=== PATIENT | female | born 1985 | race Hispanic/Latino ===

== ENCOUNTER 2018-05-16 22:32 | Emergency (ER) | payer SELFPAY ==
[2018-05-17 00:15] LABS: Absolute Lymphocytes (CBC) 1.1 K/uL (0.7-4.9); Absolute Monocytes 0.3 K/uL (0.1-1.3); Absolute Neutrophil 6.5 K/uL (1.8-8.0); Basophils % 0.3 % (0-1.3); Eosinophils % 0.9 % (0-4.4); Hematocrit 38.3 % (36.0-45.0); Lymphocytes % 13.5 % (15.3-44.8); MPV 8.9 fL (7.6-11.3); Monocytes % 3.3 % (3.3-12.3); RBC Red Blood Cell Count 4.62 M/uL (3.86-4.86)
[2018-05-17] MEDS ORDERED: DICYCLOMINE HCL 10 MG CAP ONE (00:32)
[2018-05-17] MEDS ORDERED: CIPROFLOXACIN HCL 500 MG TAB ONE (00:32)
[2018-05-17] MEDS ORDERED: metroNIDAZOLE 500 MG TABLET ONE (00:32)
[2018-05-17] MEDS ORDERED: NA CHLORIDE 0.9% 1,000 ML ONE (00:33)
[2018-05-17 00:44] LABS: Albumin 4.2 g/dL (3.4-5.0); Bilirubin Direct 0.2 mg/dL (0-0.2); Bilirubin Total 0.4 mg/dL (0.2-1.0); Potassium 3.3 mmol/L (3.5-5.1); Protein, Total 8.5 g/dL (6.4-8.2)
--- NOTE | 2018-05-17 01:34 | ER ---
Nurse's Notes [facility] Name: Cristopher Rodriguez Age: 32 yrs Sex: Female : 1985 Arrival Date: 05/16/2018 Time: 22:32 Bed 8 Private MD: Diagnosis: Diarrhea, unspecified Presentation: 05/16 22:44 Presenting complaint: Patient states: diarrhea since 0500 this am. Reports approx 7 aa1 episodes of liquid stools. Reports she recently returned from [place] today. Denies N/V. Transition of care: patient was not received from another setting of care. Onset of symptoms was May 16, 2018 at 05:00. Risk Assessment: Do you want to hurt yourself or someone else? Patient reports no desire to harm self or others. Initial Sepsis Screen: Does the patient meet any 2 criteria? No. Patient's initial sepsis screen is negative. Does the patient have a suspected source of infection? No. Patient's initial sepsis screen is negative. Care prior to arrival: None. 22:44 Method Of Arrival: Wheelchair aa1 22:44 Acuity: VELVET 3 aa1 Triage Assessment: 22:47 General: Appears in no apparent distress. comfortable, Behavior is calm, cooperative, aa1 appropriate for age. 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 - Social history:: Smoking status: Patient uses tobacco products, denies chronic smoking, but will smoke occasionally. - Ebola Screening: : Patient denies exposure to infectious person Patient denies travel to an Ebola-affected area in the 21 days before illness onset. Screenin:14 Abuse screen: Denies threats or abuse. Nutritional screening: No deficits noted. bb Tuberculosis screening: No symptoms or risk factors identified. Fall Risk None identified. Assessment: 23:14 General: Appears uncomfortable, Behavior is cooperative, anxious. Pain: Complains of bb pain in abdomen Pain began suddenly. Neuro: Level of Consciousness is awake, alert, obeys commands, Oriented to person, place, time, situation. Cardiovascular: Heart tones S1 S2 present Capillary refill < 3 seconds Patient's skin is warm and dry. Pulses are all present. Edema is absent. Respiratory: Respiratory effort is even, unlabored, Respiratory pattern is regular, Breath sounds are clear bilaterally. GI: Abdomen is non-distended, Bowel sounds present X 4 quads. Abd is soft X 4 quads Abdomen is tender to palpation. GI: Reports lower abdominal pain, upper abdominal pain, diarrhea. Derm: Skin is dry, Skin is pale, Skin temperature is warm. Musculoskeletal: Circulation, motion, and sensation intact. 05/17 00:36 Reassessment: Patient and/or family updated on plan of care and expected duration. Pain bb level reassessed. Patient is alert, oriented x 3, equal unlabored respirations, skin warm/dry/pink. pt denies pain at this time, IV intact, patent with fluids infusing family at bedside. 02:07 Reassessment: Patient is alert, oriented x 3, equal unlabored respirations, skin bb warm/dry/pink. pt resting quietly awaiting completion of IV fluids prior to discharge pt and spouse verbalized understanding of and agree to plan of care discharge instructions given. Vital Signs: 05/16 22:47 BP 108 / 60; Pulse 99; Resp 18; Temp 97.3; Pulse Ox 100% on R/A; Weight 81.65 kg (R); aa1 Height 5 ft. 6 in. (167.64 cm) (R); Pain 10/10; 18 00:37 BP 94 / 50; Pulse 84; Resp 20 S; Pulse Ox 98% on R/A; Pain 0/10; bb 02:08 BP 113 / 71; Pulse 87; Resp 16 S; Temp 98.2(O); Pulse Ox 98% on R/A; bb 05/16 22:47 Body Mass Index 29.05 (81.65 kg, 167.64 cm) aa1 ED Course: 05/16 22:32 Patient arrived in ED. am2 22:46 Triage completed. aa1 22:47 Arm band placed on left wrist. aa1 23:10 Inserted saline lock: 20 gauge in right antecubital area, using aseptic technique. bb Blood collected. 23:14 Monique Ewing, RN is Primary Nurse. bb 23:14 Patient has correct armband on for positive identification. Placed in gown. Bed in low bb position. Call light in reach. Side rails up X 1. Adult w/ patient. 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 Pulse ox on. NIBP on. pt has blanket from home. 23:59 Blayne Pink PA is PHCP. jr8 23:59 Yuri Avendaño MD is Attending Physician. jr8 05/17 02:10 No provider procedures requiring assistance completed. bb 02:17 IV discontinued, intact, bleeding controlled, No redness/swelling at site. Pressure bb dressing applied. Administered Medications: 00:35 Drug: NS 0.9% 1000 ml Route: IV; Rate: 1000 ml; Site: right antecubital; bb 02:17 Follow up: IV Status: Completed infusion; IV Intake: 1000ml bb 00:35 Drug: Bentyl 20 mg Route: PO; bb 02:10 Follow up: Response: No adverse reaction bb 00:36 Drug: Cipro 500 mg Route: PO; bb 02:11 Follow up: Response: No adverse reaction bb 00:36 Drug: Flagyl 500 mg Route: PO; bb 02:11 Follow up: Response: No adverse reaction bb Intake: 02:17 IV: 1000ml; Total: 1000ml. bb Outcome: 01:34 Discharge ordered by . jr8 02:09 Discharged to home ambulatory, with family. bb 02:09 Condition: stable 02:09 Discharge instructions given to patient, family, Instructed on discharge instructions, follow up and referral plans. medication usage, Demonstrated understanding of instructions, follow-up care, medications, Prescriptions given X 3. 02:17 Patient left the ED. bb Signatures: Melonie Noland RN RN aa1 Monique Ewing RN RN bb Blayne Pink PA PA jr8 Lakesha So am2
--- NOTE | 2018-05-17 01:35 | EDPHYS ---
Physician Documentation [facility] Name: Cristopher Rodriguez Age: 32 yrs Sex: Female : 1985 Arrival Date: 05/16/2018 Time: 22:32 Bed 8 Private MD: ED Physician Yuri Avendaño HPI: 05/17 00:16 This 32 yrs old Female presents to ER via Wheelchair with complaints of jr8 Abdominal Pain. 00:16 The patient presents with abdominal pain that is diffuse. Onset: The symptoms/episode jr8 began/occurred acutely, today. The symptoms do not radiate. Associated signs and symptoms: Pertinent positives: diarrhea, nausea. The symptoms are described as crampy. Modifying factors: The symptoms are alleviated by nothing, the symptoms are aggravated by nothing. Severity of pain: At its worst the pain was moderate in the emergency department the pain is unchanged. The patient has not experienced similar symptoms in the past. The patient has not recently seen a physician. Just got back from [place] today. Started to have abdominal cramping and diarrhea. Denies fevers or vomiting. No one else in family currently sick. 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 - Social history:: Smoking status: Patient uses tobacco products, denies chronic smoking, but will smoke occasionally. - Ebola Screening: : Patient denies exposure to infectious person Patient denies travel to an Ebola-affected area in the 21 days before illness onset. ROS: 05/17 00:16 Eyes: Negative for injury, pain, redness, and discharge, ENT: Negative for injury, jr8 pain, and discharge, Neck: Negative for injury, pain, and swelling, Cardiovascular: Negative for chest pain, palpitations, and edema, Respiratory: Negative for shortness of breath, cough, wheezing, and pleuritic chest pain, Back: Negative for injury and pain, MS/Extremity: Negative for injury and deformity, Skin: Negative for injury, rash, and discoloration, Neuro: Negative for headache, weakness, numbness, tingling, and seizure. Abdomen/GI: Positive for abdominal pain, nausea, diarrhea, abdominal cramps, Negative for abdominal distension, anorexia, dysphagia, hematemesis, black/tarry stool, rectal pain, rectal bleeding, bowel incontinence, flatulence. Exam: 00:16 Eyes: Pupils equal round and reactive to light, extra-ocular motions intact. Lids and jr8 lashes normal. Conjunctiva and sclera are non-icteric and not injected. Cornea within normal limits. Periorbital areas with no swelling, redness, or edema. ENT: Nares patent. No nasal discharge, no septal abnormalities noted. Tympanic membranes are normal and external auditory canals are clear. Oropharynx with no redness, swelling, or masses, exudates, or evidence of obstruction, uvula midline. Mucous membranes moist. Neck: Trachea midline, no thyromegaly or masses palpated, and no cervical lymphadenopathy. Supple, full range of motion without nuchal rigidity, or vertebral point tenderness. No Meningismus. Cardiovascular: Regular rate and rhythm with a normal S1 and S2. No gallops, murmurs, or rubs. Normal PMI, no JVD. No pulse deficits. Respiratory: Lungs have equal breath sounds bilaterally, clear to auscultation and percussion. No rales, rhonchi or wheezes noted. No increased work of breathing, no retractions or nasal flaring. Abdomen/GI: Soft, non-tender, with normal bowel sounds. No distension or tympany. No guarding or rebound. No evidence of tenderness throughout. Back: No spinal tenderness. No costovertebral tenderness. Full range of motion. Skin: Warm, dry with normal turgor. Normal color with no rashes, no lesions, and no evidence of cellulitis. MS/ Extremity: Pulses equal, no cyanosis. Neurovascular intact. Full, normal range of motion. Neuro: Awake and alert, GCS 15, oriented to person, place, time, and situation. Cranial nerves II-XII grossly intact. Motor strength 5/5 in all extremities. Sensory grossly intact. Cerebellar exam normal. Normal gait. Vital Signs: 05/16 22:47 BP 108 / 60; Pulse 99; Resp 18; Temp 97.3; Pulse Ox 100% on R/A; Weight 81.65 kg (R); aa1 Height 5 ft. 6 in. (167.64 cm) (R); Pain 10/10; 05/17 00:37 BP 94 / 50; Pulse 84; Resp 20 S; Pulse Ox 98% on R/A; Pain 0/10; bb 02:08 BP 113 / 71; Pulse 87; Resp 16 S; Temp 98.2(O); Pulse Ox 98% on R/A; bb 05/16 22:47 Body Mass Index 29.05 (81.65 kg, 167.64 cm) aa1 MDM: 05/16 23:59 Patient medically screened. jr8 05/17 01:10 Data reviewed: vital signs, nurses notes, lab test result(s). Data interpreted: Pulse jr8 oximetry: on room air is 98 %. Interpretation: normal. Counseling: I had a detailed discussion with the patient and/or guardian regarding: the historical points, exam findings, and any diagnostic results supporting the discharge/admit diagnosis, lab results, the need for outpatient follow up, a family practitioner, to return to the emergency department if symptoms worsen or persist or if there are any questions or concerns that arise at home. ED course: Reexamined patient. Patient still without abdominal pain. No n/v/d episodes here. Will d/c home to f/u with PCP . 05/16 23:29 Order name: Basic Metabolic Panel; Complete Time: 00:52 05/16 23:29 Order name: CBC with Diff; Complete Time: 00:43 05/16 23:29 Order name: Creatinine for Radiology; Complete Time: 00:43 05/16 23:29 Order name: Hepatic Function; Complete Time: 00:52 05/16 23:29 Order name: Lipase; Complete Time: 00:52 05/16 23:29 Order name: IV Saline Lock; Complete Time: 23:29 05/16 23:29 Order name: Labs collected and sent; Complete Time: 23:29 bb Administered Medications: 00:35 Drug: NS 0.9% 1000 ml Route: IV; Rate: 1000 ml; Site: right antecubital; 02:17 Follow up: IV Status: Completed infusion; IV Intake: 1000ml bb 00:35 Drug: Bentyl 20 mg Route: PO; bb 02:10 Follow up: Response: No adverse reaction bb 00:36 Drug: Cipro 500 mg Route: PO; bb 02:11 Follow up: Response: No adverse reaction bb 00:36 Drug: Flagyl 500 mg Route: PO; bb 02:11 Follow up: Response: No adverse reaction bb Disposition: 02:46 Co-signature as Attending Physician, Yuri Avendaño MD. pkl Disposition: 05/17/18 01:34 Discharged to Home. Impression: Diarrhea, unspecified. - Condition is Stable. - Discharge Instructions: Food Choices to Help Relieve Diarrhea, Adult, Diarrhea, Adult. - Prescriptions for Bentyl 20 mg Oral Tablet - take 1 tablet by ORAL route every 6 hours As needed; 20 tablet. Cipro 500 mg Oral Tablet - take 1 tablet by ORAL route every 12 hours for 10 days; 20 tablet. Flagyl 500 mg Oral Tablet - take 1 tablet by ORAL route every 6 hours for 10 days; 40 tablet. - Medication Reconciliation Form, Thank You Letter, Antibiotic Education, Prescription Opioid Use form. - Follow up: Private Physician; When: 2 - 3 days; Reason: Recheck today's complaints, Continuance of care, Re-evaluation by your physician. - Problem is new. - Symptoms have improved. Signatures: Dispatcher [employer] EDMS Melonie Noland RN RN aa1 Yuri Avendaño MD MD pkl Monique Ewing RN RN bb Blayne Pink PA PA jr8 Corrections: (The following items were deleted from the chart) 02:16 00:12 Urine Test ordered. jr8 02:16 00:12 Urine Dipstick-Ancillary ordered. jr8 bb 02:17 01:34 05/17/2018 01:34 Discharged to Home. Impression: Diarrhea, unspecified. Condition bb is Stable. Forms are Medication Reconciliation Form, Thank You Letter, Antibiotic Education, Prescription Opioid Use. Follow up: Private Physician; When: 2 - 3 days; Reason: Recheck today's complaints, Continuance of care, Re-evaluation by your physician. Problem is new. Symptoms have improved. jr8
== END 2018-05-17 02:17 | disposition home or self-care (01) ==
LOC: ER 22:32
DX: R19.7 Diarrhea, unspecified (principal); R10.9 Unspecified abdominal pain
CPT/HCPCS: 36415; 80048; 80076; 83690; 85025; 96360; 96361; 99284; J7030